=== PATIENT | female | born 1945 | race Caucasian/White ===

== ENCOUNTER 2019-07-15 19:55 | Inpatient (IN) | payer OTHER ==
[~2019-07-15] VITALS: Ht 157.5 cm; Wt 62.5 kg
[2019-07-15 22:06] LABS: Alanine Aminotransferase 18 U/L (13-56); Albumin 3.7 g/dL (3.4-5.0); Anion Gap 8 (5-15); Aspartate Aminotransferase 17 U/L (15-37); BUN/Creatinine Ratio 25.9; Blood Urea Nitrogen 22 mg/dL (7-18); Calcium 9.7 mg/dL (8.5-10.1); Carbon Dioxide 23 mmol/L (21-32); Chloride 107 mmol/L (98-107); GFR African American 84 mL/min; GFR Non-African American 69 mL/min; Glucose 110 mg/dL (74-106); Lipase 298 U/L (73-393); Magnesium 2.2 mg/dL (1.6-2.6); Potassium 4.2 mmol/L (3.5-5.1); Sodium 138 mmol/L (136-145)
[2019-07-15 22:09] LABS: Eosinophils # (auto) 0 10 ^3/uL (0-0.8); Eosinophils % (auto) 0.7 % (0.0-7.0); Mean Corpuscular Volume 74.4 fL (80.0-100.0); Neutrophils # (auto) 3.5 10 ^3/uL (1.6-8.6); White Blood Cell 6.2 10^3/uL (4.4-10.8)
[2019-07-15 22:11] LABS: Alkaline Phosphatase 101 U/L (45-117); Basophils # (auto) 0.1 10 ^3/uL (0-0.2); Basophils % (auto) 0.9 % (0.0-2.0); Bilirubin, Total 0.5 mg/dL (0.2-1.0); Hematocrit 35.1 % (36.0-46.0); Hemoglobin 11.2 g/dL (12.2-16.2); Lymphocytes # (auto) 2.1 10 ^3/uL (0.4-5.4); Lymphocytes % (auto) 34.4 % (10.0-50.0); Mean Corpuscular Hemoglobin 23.7 pg (28.0-32.0); Mean Corpuscular Hgb Conc. 31.8 g/dL (32.0-36.0); Monocytes # (auto) 0.4 10 ^3/uL (0-1.3); Monocytes % (auto) 7.2 % (0.0-12.0); Neutrophils % (auto) 56.8 % (37.0-80.0); Platelet Count (auto) 374 10^3/uL (140-450); Red Blood Cells 4.72 10^6/uL (4.0-5.20); Red Cell Distribution Width 16.6 % (11.8-14.3); Total Protein 7.7 g/dL (6.4-8.2)
[2019-07-15] MEDS ORDERED: SODIUM CHLORIDE 0.9% 1,000 ML IV ONE (22:30)
[2019-07-15] MEDS ORDERED: MORPHINE SULFATE 4 MG/ML SYR/VIAL IV ONE (22:30)
[2019-07-15] MEDS ORDERED: metroNIDAZOLE 500MG/100ML 100 ML IV ONE (22:30)
[2019-07-15] MEDS ORDERED: ONDANSETRON HCL 4 MG/2 ML VIAL IV ONE (22:30)
[2019-07-15 22:46] LABS: Urine Bacteria FEW /hpf (None Seen); Urine Blood Negative /uL (Negative); Urine Hyaline Cast FEW /lpf (0 - 2); Urine Mucus FEW (None Seen); Urine Specific Gravity 1.025 (1.001-1.035); Urine WBC 19 /hpf (0 - 5)
[2019-07-16] MEDS: cefTRIAXone 1GM/50ML D5W 50 ML IV SCH (01:02)
[2019-07-16] MEDS: SODIUM CHLORIDE 0.9% 1,000 ML IV SCH ×2 (01:02→14:44)
[2019-07-16 01:27] LABS: INR 0.95 (0.9-1.15); Partial Thromboplastin Time 24.5 sec (23.64-32.05)
[2019-07-16 01:55] VITALS: BP 137/81
[2019-07-16] MEDS ORDERED: LISI40TA PO (02:03)
[2019-07-16] MEDS ORDERED: LISI-646 PO (02:03)
[2019-07-16] MEDS ORDERED: METO25TA36 PO (02:03)
[2019-07-16] MEDS ORDERED: ASPI81CH43 PO (02:04)
[2019-07-16] MEDS ORDERED: GABA300C10 PO (02:16)
[2019-07-16] MEDS: MORPHINE SULFATE 4 MG/ML SYR/VIAL IV PRN ×2 (02:24→14:44)
[2019-07-16] MEDS: ONDANSETRON HCL 4 MG/2 ML VIAL IV PRN ×2 (02:25→14:45)
[2019-07-16 05:00] VITALS: BP 136/72
[2019-07-16 09:00] VITALS: BP 116/58
[2019-07-16] MEDS ORDERED: GASTROGRAFIN 120 ML SOL ONE (09:34)
[2019-07-16] MEDS: PANTOPRAZOLE 40 MG/10 ML VIAL INJ IV SCH (11:21)
[2019-07-16 13:30] VITALS: BP 157/79
[2019-07-16 16:43] VITALS: BP 140/71
[2019-07-16 21:00] VITALS: BP 137/68
[2019-07-17] MEDS: cefTRIAXone 1GM/50ML D5W 50 ML IV SCH (00:40)
[2019-07-17] MEDS: ONDANSETRON HCL 4 MG/2 ML VIAL IV PRN (02:53)
[2019-07-17] MEDS: MORPHINE SULFATE 4 MG/ML SYR/VIAL IV PRN (02:54)
[2019-07-17] MEDS: SODIUM CHLORIDE 0.9% 1,000 ML IV SCH (03:00)
[2019-07-17 05:00] VITALS: BP 136/91
[2019-07-17 05:46] LABS: Basophils # (auto) 0 10 ^3/uL (0-0.2); Basophils % (auto) 0.8 % (0.0-2.0); Eosinophils # (auto) 0.1 10 ^3/uL (0-0.8); Eosinophils % (auto) 2.8 % (0.0-7.0); Hematocrit 27.7 % (36.0-46.0); Hemoglobin 8.9 g/dL (12.2-16.2); Lymphocytes # (auto) 1.1 10 ^3/uL (0.4-5.4); Lymphocytes % (auto) 26.5 % (10.0-50.0); Mean Corpuscular Hemoglobin 23.9 pg (28.0-32.0); Mean Corpuscular Volume 74.7 fL (80.0-100.0); Monocytes # (auto) 0.3 10 ^3/uL (0-1.3); Monocytes % (auto) 6.5 % (0.0-12.0); Neutrophils # (auto) 2.6 10 ^3/uL (1.6-8.6); Neutrophils % (auto) 63.4 % (37.0-80.0); Platelet Count (auto) 263 10^3/uL (140-450); Red Cell Distribution Width 16.6 % (11.8-14.3); White Blood Cell 4.1 10^3/uL (4.4-10.8)
[2019-07-17 06:11] LABS: Albumin 2.9 g/dL (3.4-5.0); Calcium 9.4 mg/dL (8.5-10.1); Potassium 3.6 mmol/L (3.5-5.1)
[2019-07-17 06:15] LABS: Bilirubin, Total 0.3 mg/dL (0.2-1.0)
[2019-07-17 08:00] VITALS: BP 142/76
[2019-07-17] MEDS: PANTOPRAZOLE 40 MG/10 ML VIAL INJ IV SCH (10:11)
[2019-07-17 12:00] VITALS: BP 135/67
[2019-07-17 15:43] VITALS: BP 138/84
== END 2019-07-17 17:00 | disposition home or self-care (01) | DRG 394 ==
LOC: ER 19:55 → OVERFLOW 19:56 → WEST WING 07-16 01:30
PROVIDERS: ADMIT Nurse Practitioner; ATTEND Internal Medicine Geriatric Medicine
DX: K43.6 Other and unspecified ventral hernia with obstruction, without gangrene (principal); N39.0 Urinary tract infection, site not specified; I10 Essential (primary) hypertension; Z88.0 Allergy status to penicillin; Z90.710 Acquired absence of both cervix and uterus; Z90.49 Acquired absence of other specified parts of digestive tract; Z79.899 Other long term (current) drug therapy
CPT/HCPCS: 36415; 71045; 74176; 74250; 80053; 81001; 83690; 83735; 84443; 84484; 85025; 85610; 85730; 93005; 96361; 96365; 96375; C9113; G0378; J0696; J2405; J3490

== ENCOUNTER 2021-10-28 11:34 | Inpatient (IN) | payer MEDICARE, OTHER ==
[~2021-10-28] VITALS: Ht 162.6 cm; Wt 57.5 kg
[~2021-10-28 11:34] MED LIST: ASPI81CH43 PO; GABA300C10 PO; LISI20TA28 PO; LISI40TA11 PO; METO25TA36 PO
[2021-10-28 13:16] LABS: Basophils # (auto) 0.1 10 ^3/uL (0-0.2); Basophils % (auto) 0.9 % (0.0-2.0); Eosinophils # (auto) 0.1 10 ^3/uL (0-0.8); Eosinophils % (auto) 1.2 % (0.0-7.0); Hematocrit 28.4 % (36.0-46.0); Hemoglobin 9.1 g/dL (12.2-16.2); Lymphocytes # (auto) 1.2 10 ^3/uL (0.4-5.4); Lymphocytes % (auto) 21.1 % (10.0-50.0); Mean Corpuscular Hemoglobin 28.9 pg (28.0-32.0); Mean Corpuscular Volume 90.4 fL (80.0-100.0); Monocytes # (auto) 0.3 10 ^3/uL (0-1.3); Monocytes % (auto) 5.2 % (0.0-12.0); Neutrophils # (auto) 4.2 10 ^3/uL (1.6-8.6); Neutrophils % (auto) 71.6 % (37.0-80.0); Nucleated Red Blood Cells % 0.1 %; Red Blood Cells 3.14 10^6/uL (4.0-5.20); White Blood Cell 5.8 10^3/uL (4.4-10.8)
[2021-10-28] MEDS ORDERED: D5W/SOD CHLO 0.9% 1,000 ML IV ONE (13:30)
[2021-10-28 13:42] LABS: Albumin 3.3 g/dL (3.4-5.0); BUN/Creatinine Ratio 21.6; Calcium 9.1 mg/dL (8.5-10.1)
[2021-10-28] MEDS ORDERED: SODIUM CHLORIDE 0.9% 1,000 ML IV ONE (13:45)
[2021-10-28 13:48] LABS: Bilirubin, Total 0.2 mg/dL (0.2-1.0); Total Protein 6.7 g/dL (6.4-8.2)
[2021-10-28] MEDS ORDERED: HYDROcodone-ACET 5/325MG TAB PO PRN (16:30)
[2021-10-28] MEDS ORDERED: ONDANSETRON HCL 4 MG/2 ML VIAL IV PRN (16:30)
[2021-10-28] MEDS ORDERED: DOCUSATE SOD 100 MG CAP PO PRN (16:30)
[2021-10-28] MEDS ORDERED: MORPHINE SULFATE INJ 2 MG/ml SYRG IV PRN (16:30)
[2021-10-28] MEDS ORDERED: NITROGLYCERIN 0.4 MG SL TAB SL PRN (16:30)
[2021-10-28] MEDS ORDERED: HYDROmorphone HCL 2 MG/ML VL/or syr IV PRN (16:30)
[2021-10-28 17:33] LABS: BUN/Creatinine Ratio 23.1; Calcium 8.8 mg/dL (8.5-10.1); Potassium 4.2 mmol/L (3.5-5.1)
[2021-10-28 18:34] LABS: % Iron Saturation 13.4 % (15-50)
[2021-10-28] MEDS ORDERED: POTA-167 PO (21:03)
[2021-10-28] MEDS ORDERED: FAMO20TA10 PO (21:03)
[2021-10-28] MEDS ORDERED: MULT-1018 PO (21:03)
[2021-10-28] MEDS ORDERED: LORA-622 PO (21:03)
[2021-10-28] MEDS ORDERED: GAB100C PO (21:03)
[2021-10-28] MEDS ORDERED: FURO40TA4 PO (21:03)
[2021-10-28] MEDS ORDERED: QUET50TA PO (21:03)
[2021-10-28] MEDS ORDERED: LISI-716 PO (21:04)
[2021-10-28] MEDS ORDERED: PANT40TA2 PO (21:11)
[2021-10-28] MEDS ORDERED: DONE1TAB88 PO (21:11)
[2021-10-28] MEDS ORDERED: SERT25TA14 PO (21:11)
[2021-10-28] MEDS ORDERED: SIMV-13 PO (21:11)
[2021-10-28] MEDS: SODIUM CHLOR 0.9% PF (SALINE LOCK) 10ML VIAL/SYR IV SCH (21:58)
[2021-10-28 22:00] VITALS: BP 128/61
[2021-10-29 05:27] VITALS: BP 110/63
[2021-10-29] MEDS: SODIUM CHLOR 0.9% PF (SALINE LOCK) 10ML VIAL/SYR IV SCH ×3 (05:49→22:00)
[2021-10-29 08:00] VITALS: BP 101/67
[2021-10-29 09:00] VITALS: BP 105/53
[2021-10-29 13:00] VITALS: BP 106/51
[2021-10-29 13:29] LABS: Basophils # (auto) 0 10 ^3/uL (0-0.2); Basophils % (auto) 1.1 % (0.0-2.0); Eosinophils # (auto) 0.1 10 ^3/uL (0-0.8); Eosinophils % (auto) 2.8 % (0.0-7.0); Hemoglobin 9.4 g/dL (12.2-16.2); Lymphocytes # (auto) 1.7 10 ^3/uL (0.4-5.4); Lymphocytes % (auto) 38.9 % (10.0-50.0); Mean Corpuscular Hemoglobin 29.2 pg (28.0-32.0); Mean Corpuscular Hgb Conc. 32.4 g/dL (32.0-36.0); Mean Corpuscular Volume 90.1 fL (80.0-100.0); Monocytes # (auto) 0.2 10 ^3/uL (0-1.3); Monocytes % (auto) 4.9 % (0.0-12.0); Neutrophils # (auto) 2.2 10 ^3/uL (1.6-8.6); Neutrophils % (auto) 52.3 % (37.0-80.0); Red Blood Cells 3.22 10^6/uL (4.0-5.20); Red Cell Distribution Width 14.1 % (11.8-14.3); White Blood Cell 4.3 10^3/uL (4.4-10.8)
[2021-10-29 13:47] LABS: BUN/Creatinine Ratio 24.1; Calcium 9.3 mg/dL (8.5-10.1); Potassium 4.4 mmol/L (3.5-5.1)
[2021-10-29] MEDS ORDERED: ENOXAPARIN SOD 30 MG/0.3 ML SYRINGE SC ONE (17:45)
[2021-10-29] MEDS: D5W/SOD CHL 0.45% 1,000 ML IV SCH (20:28)
[2021-10-29] MEDS: ACETAMINOPHEN 325 MG TAB PO PRN (20:39)
[2021-10-29 20:57] LABS: Urine Bacteria NONE SEEN /hpf (None Seen); Urine Blood Negative /uL (Negative); Urine Hyaline Cast FEW /lpf (0 - 2); Urine Specific Gravity 1.013 (1.001-1.035); Urine WBC 9 /hpf (0 - 5)
[2021-10-29 21:07] LABS: Creatinine, Urine 87 mg/dL (30.0-125.0); Sodium Urine 45 mmol/L (40-220)
[2021-10-29 21:30] VITALS: BP 103/45
[2021-10-30 05:00] VITALS: BP_SYST 122; BP_DIAS 51; BP_DIAS 57
[2021-10-30] MEDS: SODIUM CHLOR 0.9% PF (SALINE LOCK) 10ML VIAL/SYR IV SCH ×2 (05:37→14:22)
[2021-10-30] MEDS: D5W/SOD CHL 0.45% 1,000 ML IV SCH ×2 (05:59→11:29)
[2021-10-30] MEDS: ACETAMINOPHEN 325 MG TAB PO PRN ×2 (06:05→16:46)
[2021-10-30 07:13] LABS: Calcium 9.5 mg/dL (8.5-10.1); Potassium 4.5 mmol/L (3.5-5.1)
[2021-10-30 08:00] VITALS: BP 103/60
[2021-10-30 09:00] VITALS: BP 104/50
[2021-10-30] MEDS: ENOXAPARIN SOD 30 MG/0.3 ML SYRINGE SC SCH (11:29)
[2021-10-30 13:00] VITALS: BP 121/51
[2021-10-30 17:00] VITALS: BP 137/87
[2021-10-30 21:24] VITALS: BP 155/62
[2021-10-31] MEDS: D5W/SOD CHL 0.45% 1,000 ML IV SCH ×3 (02:09→22:25)
[2021-10-31] MEDS: SODIUM CHLOR 0.9% PF (SALINE LOCK) 10ML VIAL/SYR IV SCH ×4 (02:09→22:13)
[2021-10-31 05:54] VITALS: BP 140/58
[2021-10-31 09:00] VITALS: BP 135/66
[2021-10-31 09:39] LABS: Basophils # (auto) 0 10 ^3/uL (0-0.2); Basophils % (auto) 0.5 % (0.0-2.0); Eosinophils # (auto) 0.1 10 ^3/uL (0-0.8); Eosinophils % (auto) 1.6 % (0.0-7.0); Hematocrit 29.1 % (36.0-46.0); Hemoglobin 9.5 g/dL (12.2-16.2); Lymphocytes # (auto) 1.4 10 ^3/uL (0.4-5.4); Lymphocytes % (auto) 25.7 % (10.0-50.0); Mean Corpuscular Hemoglobin 29.2 pg (28.0-32.0); Mean Corpuscular Hgb Conc. 32.6 g/dL (32.0-36.0); Mean Corpuscular Volume 89.4 fL (80.0-100.0); Monocytes # (auto) 0.2 10 ^3/uL (0-1.3); Monocytes % (auto) 4.5 % (0.0-12.0); Neutrophils # (auto) 3.7 10 ^3/uL (1.6-8.6); Neutrophils % (auto) 67.7 % (37.0-80.0); Red Blood Cells 3.25 10^6/uL (4.0-5.20); Red Cell Distribution Width 14.2 % (11.8-14.3); White Blood Cell 5.4 10^3/uL (4.4-10.8)
[2021-10-31 09:52] LABS: Potassium 4.3 mmol/L (3.5-5.1)
[2021-10-31 09:56] LABS: BUN/Creatinine Ratio 18.8; Calcium 9.4 mg/dL (8.5-10.1)
[2021-10-31] MEDS: ENOXAPARIN SOD 30 MG/0.3 ML SYRINGE SC SCH (10:03)
[2021-10-31] MEDS: ACETAMINOPHEN 325 MG TAB PO PRN ×2 (11:31→18:36)
[2021-10-31 13:00] VITALS: BP 130/60
[2021-10-31 17:00] VITALS: BP 143/65
[2021-10-31 22:00] VITALS: BP 162/73
[2021-10-31] MEDS ORDERED: DONEPEZIL HYDROCHLORIDE 5 MG TAB PO SCH (22:00)
[2021-10-31] MEDS: QUEtiapine FUMARATE 25 MG TAB PO SCH (22:00)
[2021-10-31] MEDS ORDERED: ATORVASTATIN 20 MG TAB PO SCH (22:00)
[2021-11-01 04:38] VITALS: BP 160/69
[2021-11-01 05:35] VITALS: BP 131/52
[2021-11-01] MEDS: D5W/SOD CHL 0.45% 1,000 ML IV SCH (05:45)
[2021-11-01] MEDS: SODIUM CHLOR 0.9% PF (SALINE LOCK) 10ML VIAL/SYR IV SCH (06:00)
[2021-11-01 09:00] VITALS: BP 147/63
[2021-11-01] MEDS: QUEtiapine FUMARATE 25 MG TAB PO SCH (09:23)
[2021-11-01] MEDS: ENOXAPARIN SOD 30 MG/0.3 ML SYRINGE SC SCH (09:27)
[2021-11-01] MEDS ORDERED: ASPirin 81 mg TAB PO SCH (10:00)
[2021-11-01] MEDS ORDERED: PANTOPRAZOLE 40 MG TAB PO SCH (10:00)
[2021-11-01] MEDS ORDERED: SERTRALINE HCL 50 MG TAB PO SCH (10:00)
[2021-11-01] MEDS ORDERED: MULTIPLE VITAMIN TAB PO SCH (10:00)
[2021-11-01 12:26] VITALS: BP 147/63
[2021-11-01 13:00] VITALS: BP 132/59
== END 2021-11-01 13:29 | DRG 639 ==
LOC: EDBD 11:34 → ER 11:50 → TELE 16:25 → TELE-CENTR 20:15
PROVIDERS: ADMIT Internal Medicine; ATTEND Internal Medicine Pulmonary Disease
DX: E11.649 Type 2 diabetes mellitus with hypoglycemia without coma (principal); R00.1 Bradycardia, unspecified; N17.9 Acute kidney failure, unspecified; E86.0 Dehydration; D64.9 Anemia, unspecified; F03.90 Unspecified dementia, unspecified severity, without behavioral disturbance, psychotic disturbance, mood disturbance, and anxiety; W18.39XA Other fall on same level, initial encounter; I10 Essential (primary) hypertension; Z20.822 Contact with and (suspected) exposure to COVID-19; Z88.0 Allergy status to penicillin; Y93.89 Activity, other specified; Y92.89 Other specified places as the place of occurrence of the external cause; Y99.8 Other external cause status
CPT/HCPCS: 36415; 70450; 71045; 72125; 72170; 73030; 73110; 73610; 76775; 80048; 80053; 81001; 82550; 82570; 82728; 82962; 83540; 83550; 84300; 84550; 85025; 87081; 93005; 93306; 93886; 96360; 97110; 97116; 97163; 97530; G0378